=== PATIENT | male | born 1965 | race African-American/Black ===

== ENCOUNTER 2016-09-20 00:34 | Inpatient (IN) | payer BC ==
[~2016-09-20] VITALS: Ht 185.4 cm; Wt 92.0 kg
--- NOTE | ~2016-09-20 | ST ---
Unit #: [id number] #: [id number] Patient: MICAELA WORTHY [id number] [address] [address] [id number] I MR#: [id number] NAME: MICAELA WORTHY : 1965 SEX: M STUDY DATE/TIME: 09/21/2016 UNIT: C5B ROOM: 556 STUDY DESCRIPTION: Cardiac stress test. Attending Physician: Poli Feldman M.D. Primary Care Physician: Agustin Hernandez M.D. CARDIOLOGY REPORT EXAM Cardiac stress test. Results included in Cardiolite imaging report. Dictated by... Poli Feldman M.D. PJR/gz TD: 09/21/2016 16:07 JOB #: [id number] CARDIOLOGY REPORT Page 1 of 1 X Poli Feldman MD CARDIOLOGY REPORT
--- NOTE | ~2016-09-20 | HP ---
Unit #: [id number] #: [id number] Patient: MICAELA WORTHY [id number] [place] [facility]. [place], [place] [address] [id number] I MR#: [id number] NAME: MICAELA WORTHY. ROOM: 556 Age: 51 Sex: M Admission Date: 09/20/2016 : 1965 Attending Physician: Poli Feldman M.D. Primary Care Physician: Agustin Hernandez M.D. HISTORY AND PHYSICAL CHIEF COMPLAINT Patient says his heart went out of rhythm. He is a 51-year-old gentleman who has a prior history of kidney transplantation. He takes, obviously, medication for his kidney transplantation. He also has a history of hypertension. He came to the emergency room last night because he felt like his heart is out of rhythm. He also felt some burning in the chest. Right now he is completely comfortable. He is on aspirin and IV heparin. His EKG definitely is showing A-fib with better controlled ventricular rate. There are no ST-T changes suggestive of any myocardial ischemia. PAST MEDICAL HISTORY Positive for hypertension and kidney transplantation. PAST SURGICAL HISTORY Status post kidney transplantation. ALLERGIES None. CURRENT MEDICATIONS He takes: 1. CellCept 500 mg twice a day. 2. Lasix 40 mg daily. 3. Metoprolol 50 mg twice daily. 4. Prednisone 10 mg daily. 5. Prograf 3 mg twice daily. FAMILY HISTORY Negative for premature CAD. SOCIAL HISTORY He doesn't smoke, does not drink. REVIEW OF SYSTEMS Twelve point review of systems was performed and it was all negative except as mentioned in HPI. PHYSICAL EXAMINATION GENERAL: He looks comfortable, not in any kind of distress. VITAL SIGNS: Heart rate 80, blood pressure 130/60. He is breathing a respiratory rate of 60. HEENT: Eyes - conjunctivae normal. Pupils round, reactive. Oral mucosa Unit #: [id number] #: [id number] Patient: MICAELA WORTHY is moist. No central cyanosis. NECK: He has no thyromegaly. Carotid upstroke is normal. JVD is not elevated. CHEST: He is breathing normal and clear on auscultation. CARDIAC: He has no parasternal lift. S1, S2 normally heard. No gallop, no murmur. ABDOMEN: Soft. Liver and spleen not enlarged. Abdominal aorta not palpable. Guaiac test not indicated. EXTREMITIES: He has no pedal edema. 2+ bilateral femoral and dorsalis pedis pulses. There is no clubbing. SKIN: No rash or abnormal pigmentation. NEUROLOGICAL: He is oriented x3. Mood is normal. Muscle tone in all extremities normal. DIAGNOSTIC STUDIES CARDIOVASCULAR: EKG showing A-fib with nonspecific ST and T changes. LABORATORY: His troponin is also 0.07 which is borderline elevated but not making the cut off for myocardial infarction. ASSESSMENT 1. Newly identified atrial fibrillation but his ventricular rate is under control. 2. Borderline troponin elevation. 3. Hypertension. 4. Status post kidney transplantation and, obviously, patient has been on immunosuppression medication for a long time. PLAN 1. I will continue with his aspirin and IV heparin and all his home meds. 2. I will repeat his troponin. If his troponin is elevated, then he will need cardiac catheterization tomorrow. 3. If his troponin is borderline, then he will need a stress Cardiolite tomorrow. All of these issues were explained to the patient. Dictated by Walter Simmons/zoraida TD: 09/20/2016 10:37 JOB #: [id number] Unit #: [id number] #: [id number] Patient: MICAELA WORTHY HISTORY AND PHYSICAL Page 1 of 1 X Anthony Rodriguez MD HISTORY AND PHYSICAL
--- NOTE | ~2016-09-20 | EKG ---
PATIENT: MICAELA WORTHY UNIT #: [id number] Ventricular Rate: 84 BPM Atrial Rate: 100 BPM QRS Duration: 100 ms Q-T Interval: 374 ms QTC Calculation(Bezet): 441 ms Calculated R [place]: 23 degrees Calculated T [place]: -38 degrees Diagnosis Line: Atrial fibrillation Diagnosis Line: Nonspecific T wave abnormality Diagnosis Line: Abnormal ECG Diagnosis Line: When compared with ECG of 27-NOV-2011 19:37, Diagnosis Line: Atrial fibrillation has replaced Sinus rhythm Diagnosis Line: Confirmed by JORDIN PRAKASH MD ([id number]) on 09/21/2016 Diagnosis Line: 6:14:10 PM INTERPRETING MD: OLINDA SMALL
--- NOTE | ~2016-09-20 | DS ---
Unit #: [id number] #: [id number] Patient: MICAELA WORTHY [id number] [address] [place], [place] [address] [id number] I MR#: [id number] NAME: MICAELA WORTHY. ROOM: 556 Age: 51 Sex: M Admission Date: 09/20/2016 : 1965 Discharge Date: 09/21/2016 Attending Physician: Poli Feldman M.D. Primary Care Physician: Agustin Hernandez M.D. DISCHARGE SUMMARY REASON FOR ADMISSION To the hospital, palpitations and chest pain. HOSPITAL COURSE The patient was admitted to the hospital with complaints of chest pain as well as palpitations. The patient states that he was awoken in the middle of the night with an irregular heart beating sensation and he also had a light pressure to the middle of his chest. The patient's rate was controlled as he was on metoprolol at home. Therefore, the patient was started on a heparin drip and troponins were trended. He did have some indeterminate troponins up to peak of 0.07. It was decided that the patient should undergo a stress test to rule out ischemic heart disease. The patient had exercise Cardiolite stress test on 09/21/[address] Feldman, the results were no ischemia and LVEF was normal. The patient also had an echocardiogram done on 09/20/2016 that showed mild concentric LVH, grade 1 diastolic dysfunction. Ejection fraction of 55%. Mild AL. The patient is going to be discharged home today as he is stable, has had no further chest pain. Has been ambulating around the unit without any chest pain or anginal symptoms. The patient's heart rate at the time of discharge has converted back to normal sinus rhythm. Will be maintained on his home dose of beta-aditya for maintenance of sinus rhythm. DISCHARGE ALLERGIES No known allergies. BODY AFTER ALLERGIES DISCHARGE MEDICATIONS Include prednisone 10 mg p.o. daily, metoprolol 50 mg p.o. b.i.d., Lasix 40 mg p.o. daily, CellCept 500 mg p.o. b.i.d., Prograf 3 mg p.o. b.i.d., multivitamin daily, Eliquis 5 mg p.o. b.i.d. Eliquis cost is checked. It is going to be free for the first month and then 10 dollars per month after that with the pharmacy coupon. The patient is going to be able to afford this medication. PHYSICAL EXAMINATION GENERAL: This is a 51-year-old male, who is alert and oriented x3, in no apparent distress. VITAL SIGNS: Blood pressure 118/70, temp 98.1, pulse 69, respirations 20. HEENT: Pupils are equal, round, and reactive. Oral mucosa is moist. Unit #: [id number] #: [id number] Patient: MICEALA WORTHY NECK: No JVD. No thyromegaly. No lymphadenopathy. No carotid bruits. HEART: S1, S2. No S3 or S4. Regular rate and rhythm. No clicks. No rubs, no murmurs. LUNGS: Clear. ABDOMEN: Soft. Bowel sounds positive. Nontender. Nondistended. EXTREMITIES: No swelling. NEUROLOGIC: No neuro deficits noted. DIAGNOSTIC STUDIES LABORATORY RESULTS: Includes cholesterol 162, triglycerides 38, HDL 50, LDL 104. Hemoglobin A1c of 6. Troponin less than 0.05, then 0.07, then 0.06 x2. BNP 56. White count 7.8, hemoglobin 13.2, hematocrit 40.6, platelets 255. Sodium 138, potassium 3.8, chloride 105, CO2 of 23, glucose 112, BUN 14, creatinine 0.9. IMAGING STUDIES: Includes chest x-ray, with a mild cardiac enlargement, mild central vascular congestion. CARDIOVASCULAR STUDIES: EKG showed atrial fibrillation with a rate of 84. DISCHARGE DIAGNOSES Include; 1. New onset atrial fibrillation, now normal sinus rhythm. 2. Hypertension. 3. Indeterminate troponin with peak of 0.07. 4. Status post kidney transplant. 5. Left ventricular ejection fraction of 55%. DISCHARGE PLAN The patient will discharge home today in stable condition. He will follow up in the office with Dr. Rodriguez in 4 weeks. He will also follow up with his PCP in the next 2 weeks. Dictated by... ALISON Nelson TD: 09/21/2016 15:53 JOB #: [id number] DISCHARGE SUMMARY Page 1 of 1 X X DISCHARGE SUMMARY
--- NOTE | ~2016-09-20 | TH ---
Unit #: [id number] #: [id number] Patient: MICAELA WORTHY [id number] [address] [address] [id number] I MR#: [id number] NAME: MICAELA WORTHY. : 1965 SEX: M STUDY DATE/TIME: 09/21/2016 UNIT: C5B ROOM: 556 STUDY DESCRIPTION: Cardilite imaging Attending Physician: Poli Feldman M.D. Primary Care Physician: Agustin Hernandez M.D. CARDIOLOGY REPORT EXAM Stress ECG and nuclear combined. INDICATION Dyspnea, chest discomfort. SUMMARY The patient exercised on a Domingo protocol to maximal effort. The patient was given technetium 99m Cardiolite 10.2 and 33.3 mCi at rest and stress respectively. Appropriate views were obtained. FINDINGS The patient completed 10 minutes 50 seconds of exercise. Heart rate increased from 70 to 151 (89%), and blood pressure increased from 156/104 to 169/103. The patient did not experience any chest pain during the study. ECG with stress showed 0.[address] depression in the lateral leads, primarily after exercise. There were PVC couplets and PAC couplets noted. T waves were inverted at rest, thus an abnormal resting study, in leads V5 and V6. Perfusion images demonstrate diaphragmatic artifact at both rest and stress, with a large ventricle, intestinal artifact, but otherwise normal perfusion throughout the myocardium at both rest and stress. Gated perfusion wall motion analysis demonstrates end-diastolic volume 172 ml. Calculated ejection fraction is 56%. Qualitatively ejection fraction appears to be approximately this number. Planar images demonstrate no significant patient motion at rest or stress. Left ventricular is enlarged. Right ventricle appears upper normal. No increased lung uptake. Summed stress scores is zero. IMPRESSION 1. Very large ventricle. 2. Preserved ejection fraction. 3. No evidence of ischemia on ECG or stress nuclear study. 4. Good exercise tolerance. 5. Resting hypertension. Dictated by... Poli Fedlman M.D. PJR/gz Unit #: [id number] #: [id number] Patient: MICAELA WORTHY TD: 09/21/2016 15:56 JOB #: [id number] CARDIOLOGY REPORT Page 1 of 1 X Poli Feldman MD CARDIOLOGY REPORT
--- NOTE | ~2016-09-20 | CR72 ---
[facility] A Service of [facility] RADIOLOGY TEXT RESULTS PATIENT: MICAELA WORTHY LOCATION: [place] [address] : [birth year] UNIT #: [id number] AGE: [address]: Poli Feldman MD SEX: M ORDER DR: [id number] [address] [address] [id number] I MR#: [id number] Acc #: [id number] NAME: MICAELA WORTHY. : 1965 SEX: M STUDY DATE/TIME: 09/20/2016 2:53 UNIT: [facility] ROOM: [facility] STUDY DESCRIPTION: CR Chest Single View Portable Attending Physician: Poli Feldman M.D. Ordering Physician: Srini Davis M.D. Primary Care Physician: Agustin Hernandez M.D. MEDICAL IMAGING REPORT This report is preliminary unless electronic signature is present EXAM AP portable chest. DATE 09/20/2016 HISTORY Palpitations and chest pain tonight. History of renal transplant. Hypertension. COMPARISON PA and lateral chest, 08/28/2012. FINDINGS No acute airspace disease. Heart size is mildly enlarged and appears slightly larger than on the 2012 examination. Central pulmonary vasculature appears slightly enlarged. No evidence of kwame pulmonary edema. No consolidation. No pleural effusion or pneumothorax. IMPRESSION Mild cardiac enlargement, which appears to have developed since the 2029 examination. Mild central vascular congestion without kwame pulmonary edema. No consolidation. Dictated by... Julieth Love M.D. THIS IS AN ELECTRONICALLY VERIFIED REPORT Julieth Love M.D. at 09/20/2016 9:51 PM [facility] A Service of [facility] RADIOLOGY TEXT RESULTS PATIENT: MICAELA WORTHY LOCATION: [place] [address] : [birth year] UNIT #: [id number] AGE: [address]: Poli Feldman MD SEX: M ORDER DR: TD: 09/20/2016 10:08 JOB #: [id number] MEDICAL IMAGING REPORT Page 1 of 1 COPY
[~2016-09-20 00:34] MED LIST: NORCO 5/325 TAB1 TAB PO; TAMIFLU75 M1 PO
[2016-09-20 02:17] LABS: BASOPHIL% 0.3 % (0-2.5); EOSINOPHIL# 0.4 X10e3 (0-0.7); EOSINOPHIL% 4.9 % (0.0-7.0); HEMATOCRIT 40.6 % (38.0-50.0); HEMOGLOBIN 13.2 gm/dL (13.0-16.0); LYMPHOCYTE# 3.6 X10e3 (1.0-3.5); LYMPHOCYTE% 46.7 % (17.0-45.0); MEAN CELL VOLUME 81.5 FL (83-96); MEAN CORPUSCULAR HEMOGLOBIN 26.5 PG (28-34); MEAN CORPUSCULAR HGB CONC 32.5 g/dL (30-36); MEAN PLATELET VOLUME 7.4 FL (6.5-11.5); MONOCYTE# 0.9 X10e3 (0-1.0); NEUTROPHIL# 2.9 X10e3 (1.5-7.1); NEUTROPHIL% 37.1 % (40-75); PLATELET COUNT 255 X10e3 (140-420); RED BLOOD COUNT 4.98 X10e (3.90-5.60); RED CELL DISTRIBUTION WIDTH 15.2 % (11.0-15.5); WHITE BLOOD COUNT 7.8 X10e3 (4.0-10.5)
[2016-09-20 02:29] LABS: POC - CKMB 2.2 ng/mL (0.0-7.9); POC - TROPONIN <0.05 ng/mL (<=0.05)
[2016-09-20 02:31] LABS: DIFF IND NO
[2016-09-20 02:36] LABS: INR 1.3; PARTIAL THROMBOPLASTIN TIME 30.6 SECONDS (23.5-31.3); PROTHROMBIN TIME (PATIENT) 14.4 SECONDS (10.0-11.7)
[2016-09-20 02:44] LABS: ALBUMIN SERUM 3.8 g/dL (3.5-5.0); BILIRUBIN, DIRECT 0.1 mg/dL (0.0-0.2); BILIRUBIN,INDIRECT 0.4 mg/dL (0.0-0.9); BILIRUBIN,TOTAL 0.5 mg/dL (0.2-2.0); CALCIUM SERUM 9.1 mg/dL (8.4-10.2); GLOM FILT RATE Estimated 100.6 mL/min (>60); MAGNESIUM 1.7 mg/dL (1.6-3.0); POTASSIUM 3.3 mmol/L (3.5-5.1); PROTEIN TOTAL SERUM 7.6 g/dL (6.0-8.3)
[2016-09-20 04:46] LABS: URINE SOURCE CLEAN CATCH
[2016-09-20] MEDS ORDERED: FUROSEMIDE40 MG PO (04:48)
[2016-09-20] MEDS ORDERED: CELLCEPT500 MG PO (04:48)
[2016-09-20 04:49] LABS: URINE APPEARANCE CLEAR; URINE BILIRUBIN NEG (NEG); URINE BLOOD NEG (NEG); URINE COLOR YELLOW; URINE GLUCOSE NEG (NEG); URINE KETONE NEG (NEG); URINE LEUKOCYTE ESTERASE NEG (NEG); URINE NITRATE NEG (NEG); URINE PROTEIN NEG (NEG); URINE SPECIFIC GRAVITY 1.006 (1.003-1.035); URINE UROBILINOGEN 0.2 MG/DL (NEG)
[2016-09-20] MEDS ORDERED: LOPRESSOR PO (04:49)
[2016-09-20] MEDS ORDERED: MULTIVITAMINS1 EAC3 PO (04:49)
[2016-09-20] MEDS ORDERED: PREDNISONE10 MG PO (04:49)
[2016-09-20] MEDS ORDERED: PROGRAF1 MG PO (04:50)
[2016-09-20 04:55] LABS: CULTURE INDICATED? NO
[2016-09-20 07:20] LABS: BASOPHIL# 0.1 X10e3 (0-0.3); BASOPHIL% 1.2 % (0-2.5); EOSINOPHIL# 0.2 X10e3 (0-0.7); EOSINOPHIL% 4.2 % (0.0-7.0); HEMATOCRIT 39.8 % (38.0-50.0); HEMOGLOBIN 13.1 gm/dL (13.0-16.0); LYMPHOCYTE# 2.5 X10e3 (1.0-3.5); LYMPHOCYTE% 42.9 % (17.0-45.0); MEAN CELL VOLUME 81.5 FL (83-96); MEAN CORPUSCULAR HEMOGLOBIN 26.7 PG (28-34); MEAN CORPUSCULAR HGB CONC 32.8 g/dL (30-36); MEAN PLATELET VOLUME 7.6 FL (6.5-11.5); MONOCYTE# 0.5 X10e3 (0-1.0); NEUTROPHIL# 2.5 X10e3 (1.5-7.1); NEUTROPHIL% 42.7 % (40-75); PLATELET COUNT 255 X10e3 (140-420); RED BLOOD COUNT 4.89 X10e (3.90-5.60); WHITE BLOOD COUNT 5.8 X10e3 (4.0-10.5)
[2016-09-20 07:23] LABS: DIFF IND NO
[2016-09-20 08:28] LABS: CHOLESTEROL 162 mg/dL (0-200); HDL CHOLESTEROL 50 mg/dL (29-75); LDL CHOLESTEROL 104 mg/dL (-130); LDL/HDL RATIO 2 RATIO (0-4); TRIGLYCERIDES 38 mg/dL (10-160)
[2016-09-20 08:33] LABS: %MB 1.2 % (0.0-4.0); MB 1.9 ng/ml
[2016-09-20 08:33] LABS: BUN/CREATININE RATIO 15.55; CALCIUM SERUM 9.1 mg/dL (8.4-10.2); CREATININE SERUM 0.9 mg/dL (0.6-1.4); GLOM FILT RATE Estimated 114.2 mL/min (>60); POTASSIUM 3.8 mmol/L (3.5-5.1)
[2016-09-20 13:40] LABS: %MB 1.3 % (0.0-4.0)
[2016-09-20 20:44] LABS: %MB 1.2 % (0.0-4.0); MB 1.5 ng/ml
[2016-09-21] MEDS ORDERED: ELIQUIS5 MG PO (14:59)
== END 2016-09-21 15:20 | disposition home or self-care (01) | DRG 309 ==
LOC: CED 00:34 → CEDOF 04:30 → CED 05:14 → CEDOF 06:29 → C5B 06:29
PROVIDERS: Emergency Medicine; Internal Medicine Cardiovascular Disease
PROC: B24BZZZ Ultrasonography of Heart with Aorta (ICD-10-PCS; principal; 2016-09-20)
DX: I48.91 Unspecified atrial fibrillation (principal); Z94.0 Kidney transplant status; I10 Essential (primary) hypertension
CPT/HCPCS: 36415; 71010; 78452; 80048; 80061; 80076; 81003; 82550; 82553; 83036; 83735; 83880; 84443; 84484; 85025; 85610; 85730; 93005; 93017; 93306; 99285; A9500; J1644; J7507; J7517